=== PATIENT | male | born 1960 | race Caucasian/White ===

== ENCOUNTER 2018-03-02 19:01 | Inpatient (IN) ==
[2018-03-02] MEDS ORDERED: *HR* FentaNYL (PF) 100 MCG/2 ML VIAL IVP ONE ×2 (20:17→21:03)
[2018-03-02] MEDS ORDERED: Ondansetron 4 MG/2 ML VIAL IVP ONE (20:17)
[2018-03-02] MEDS ORDERED: 0.9 % Sodium Chloride 1,000 ML IVC ONE (20:17)
--- NOTE | 2018-03-02 20:19 | Emergency Department Note ---
Disposition Clinical Impression: Acute appendicitis Qualifiers: Acute appendicitis type: with localized peritonitis Appendicitis gangrene presence: without gangrene Appendicitis perforation presence: without perforation Appendicitis abscess presence: without abscess Qualified Code(s): K35.30 - Acute appendicitis with localized peritonitis, without perforation or gangrene Disposition: Admitted As Inpatient Condition: Undetermined Referrals: Dimitri Archuleta MD [Primary Care Provider] - Forms: ED Satisfaction Letter, Work/School Release Time of Disposition: 21:28 Abdominal Pain HPI - General Chief Complaint: ED Abdominal Pain Stated Complaint: ABD Pain hx umbilical hernia Time Seen by Provider: 03/02/18 19:57 Source: patient Mode of arrival: ambulatory Limitations: no limitations Nursing Notes Reviewed: Yes Vital Signs Reviewed: Yes - History of Present Illness HPI Narrative: 57-year-old male arrives to the emergency department with onset of gradually worsening abdominal pain in the right lower quadrant. Patient states this started overnight last night is progressively worsened. He states started about 24 hours ago. There is no colicky nature to it. He has associated nausea. The patient has had 5 episodes of vomiting. No diarrhea, melena, hematochezia. Patient denies any previous abdominal surgeries. The patient does have a history of umbilical hernia. The patient states that he was supposed to have his repair but never did. His ability to hernia is easily reduced on evaluation. He has no tenderness with palpation of his umbilical hernia. The patient's pain is primarily located in the right lower quadrant. He denies any other complaints at this time. The patient is very uncomfortable on examination right around the bed. The patient was given 100 g fentanyl dose as well as IV Zofran. Patient denies any other complaints at this time. Pain Scale: 9 - Related Data Previous Rx's Medication Instructions Recorded Hydrocodone/Acetaminophen [[place] 1 each PO 3-4XD PRN #8 tablet 03/10/16 5-325 Tablet] Naproxen [Naprosyn] 500 mg PO BID PRN #15 tablet 03/10/16 Allergies Allergy/AdvReac Type Severity Reaction Status Date / Time No Known Allergies Allergy Verified 03/10/16 16:53 All systems ED: reviewed and negative except as stated. Constitutional: Denies: fever, chills, weakness ENT ED: Denies: dysphagia Cardiovascular: Denies: chest pain Respiratory: Denies: dyspnea Gastrointestinal: Reports: abdominal pain, nausea, vomiting. Denies: diarrhea, constipation, hematemesis, melena, hematochezia Genitourinary: Denies: urgency, dysuria Musculoskeletal: Denies: back pain, neck pain, arthralgia, myalgia Integumentary: Denies: rash Neurological: Denies: headache Abdominal Pain PMH - Past Medical History Medical history: Reports: no medical history Male Surgical History: Reports: no surgical history Psychiatric history: Reports: no psych history - Social History Smoking status: Never smoker Alcohol use: Reports: none Drug use: Reports: unknown Physical Exam - General Limitations: no limitations General appearance: alert, in distress (Secondary to pain) - Head Head exam: atraumatic, normocephalic, normal inspection - Eye Eye exam: Present: normal appearance, PERRL, EOMI - ENT ENT exam: normal exam, normal oropharynx, mucous membranes moist - Neck Neck exam: Present: normal inspection, full ROM, trachea midline - Chest Chest inspection: Present: normal inspection, symmetric chest wall rise - Respiratory Respiratory exam: Present: normal lung sounds bilaterally - Cardiovascular Cardiovascular exam: Present: normal rhythm, tachycardia, normal heart sounds - Abdominal Exam Abdominal exam: Present: tenderness (Diffuse, worse in RLQ), guarding, tenderness at McBurney's Point, hernia (umbilical that is reducible). Absent: distention, rebound, rigidity, Guzmán's sign, Rovsing's sign, pulsatile mass, scar - Extremities Exam Extremities exam: Present: normal inspection, full ROM. Absent: tenderness, pedal edema - Neurological Exam Neurological exam: Present: alert, oriented X3 - Skin Skin exam: Present: warm, dry, intact, normal color Course Vital Signs Temperature 99.0 F 03/02/18 19:07 Pulse Rate 100 03/02/18 19:07 Respiratory Rate 18 03/02/18 19:07 Blood Pressure 128/76 03/02/18 19:07 O2 Sat by Pulse Oximetry 96 03/02/18 19:07 Temperature 99.0 F 03/02/18 20:50 Pulse Rate 100 03/02/18 20:50 Respiratory Rate 18 03/02/18 20:50 Blood Pressure 128/76 03/02/18 20:50 O2 Sat by Pulse Oximetry 96 03/02/18 20:50 Oxygen Delivery Oxygen Delivery Room Air Abdominal Pain - MDM Narrative Medical decision making narrative: 2123: Patient's workup in the emergency department demonstrates findings consistent with retrocecal appendicitis with a large amount of periappendiceal fat stranding. The patient was given a dose of Zosyn here in the emergency department. The patient case will be discussed with general surgery. Pain is well-controlled at this time. 2127: Spoke with general surgery who requested admission to their service. He was see the patient at bedside. Patient's pain is well-controlled at this time. Patient was given Zosyn here in the emergency department. No further questions or concerns noted. - Lab Data Lab results reviewed: Yes I reviewed the patient's lab results. Result diagrams: 03/02/18 20:24 03/02/18 20:24 Lab Results 03/02/18 03/02/18 03/02/18 Range/Units 20:20 20:24 20:24 Hgb 13.9 (12.9-16.9) g/dL Hct 41.4 (37.5-50.1) % Plt Count 330 (140-400) K/mcL Sodium 134 L (136-145) mEq/L Potassium 4.3 (3.5-5.1) mEq/L Chloride 99 (98-107) mEq/L Carbon Dioxide 25 (23-29) mEq/L BUN 23 H (6-20) mg/dL Creatinine 0.74 (0.70-1.30) mg/dL Est GFR ( Amer) > 60 (> 60) Est GFR (Non-Af Amer) > 60 (> 60) BUN/Creatinine Ratio 31 H (6-26) Glucose 160 H (70-105) mg/dL Calculated Osmolality 285 (280-300) Calcium 10.0 (8.6-10.3) mg/dL Urine Color Dark Yellow (Yellow) Urine Clarity Cloudy A (Clear) Urine pH 6.0 (5.0-8.0) pH Units Ur Specific [place] 1.024 (1.010-1.025) Urine Protein Trace (Neg-Trace) mg/dL Urine Glucose (UA) Normal (Normal) mg/dL Urine Ketones Trace H (Negative) mg/dL Urine Blood Negative (Negative) Urine Nitrite Negative (Negative) Urine Bilirubin Negative (Negative) Urine Urobilinogen Normal (Normal) mg/dL Ur Leukocyte Esterase Negative (Negative) Urine Microscopic WBC 0-3 (0-3) per hpf Ur Squamous Epith Cells Few (None-Few) per lpf Urine Bacteria Moderate H (None-Few) per hpf Urine Mucus Many H (Few) Ur Culture Indicated? NO (NO) - Radiology Data Radiology results reviewed: Yes I reviewed the patient's radiology results. Abdomen/Pelvis CT 03/02/18 20:16 IMPRESSION: Acute retrocecal appendicitis with appendicoliths. The appendix is dilated measuring up to 2 cm. There several obstructing appendicolith spur. There is extensive periappendiceal fat stranding with small amount of free fluid that is likely reactive extending inferiorly in the pericolic gutter. There is no drainable fluid collection/abscess. There are few bilateral nonobstructing renal calculi measuring up to 5 mm on the left. The wall of the urinary bladder appears thick and mildly irregular with the reservation that the bladder was not opacified or well distended. Correlation with urinalysis and cystoscopy would be helpful. Bilateral L4 and L5 spondylolysis. Grade 1 spondylolisthesis at L5-S1. D/ / Rinku Rabago MD / Rinku Rabago MD Interpreting Provider: Rinku Rabago MD
[2018-03-02 20:29] LABS: Bilirubin,Urine Negative (Negative); Blood,Urine Negative (Negative); Clarity,Urine Cloudy (Clear); Color,Urine Dark Yellow (Yellow); Glucose,Urine (UA) Normal (Normal); Ketones,Urine Trace mg/dL (Negative); Leukocyte Esterase,Urine Negative (Negative); Nitrite,Urine Negative (Negative); Protein,Urine Trace mg/dL (Neg-Trace); Specific Gravity,Urine 1.024 (1.010-1.025); Urobilinogen,Urine Normal (Normal)
--- NOTE | 2018-03-02 20:33 | Emergency Department Note ---
Disposition Clinical Impression: Acute appendicitis Disposition: Admitted As Inpatient Condition: Undetermined Abdominal Pain HPI - General Chief Complaint: ED Abdominal Pain Stated Complaint: ABD Pain hx umbilical hernia Time Seen by Provider: 03/02/18 19:57 Source: patient Mode of arrival: ambulatory Limitations: no limitations Nursing Notes Reviewed: Yes Vital Signs Reviewed: Yes - History of Present Illness HPI Narrative: 57 y/o M with PMHx of umbilical hernia presents with complaints of gradual onset RLQ abdominal pain today along with 5 episodes of non-bloody vomiting. Patient states that he has a previous diagnosis of umbilical hernia that he was advised by his PCP to go see General Surgery Dr. Toribio to have repaired. Patient never had the surgery scheduled and notes some mild 2-3/10 pain over the umbilical hernia since that time. Patient had a minor procedure done yesterday to remove tissue from his lip and since that time he has noticed the increasing pain. Pain is located in the RLQ abdomen and rated 10+/10 worse with any movement. He last had a bowel movement 24hrs ago and notes it was normal. He was eating normally yesterday prior to the onset of pain but hasnt eaten today secondary to vomiting. He denies fevers, chest pain, SOB, hemoptysis, diarrhea, hematochezia, HAM, swelling, trauma. Pain Scale: 9 - Related Data Previous Rx's Medication Instructions Recorded Hydrocodone/Acetaminophen [[place] 1 each PO 3-4XD PRN #8 tablet 03/10/16 5-325 Tablet] Naproxen [Naprosyn] 500 mg PO BID PRN #15 tablet 03/10/16 Allergies Allergy/AdvReac Type Severity Reaction Status Date / Time No Known Allergies Allergy Verified 03/10/16 16:53 Constitutional: Denies: fever, chills, weakness ENT ED: Denies: dysphagia Cardiovascular: Denies: chest pain Respiratory: Denies: dyspnea Gastrointestinal: Reports: abdominal pain, nausea, vomiting. Denies: diarrhea, constipation, hematemesis, melena, hematochezia Genitourinary: Denies: urgency, dysuria Musculoskeletal: Denies: back pain, neck pain, arthralgia, myalgia Integumentary: Denies: rash Neurological: Denies: headache Abdominal Pain PMH - Past Medical History Medical history: Reports: no medical history Male Surgical History: Reports: no surgical history Psychiatric history: Reports: no psych history - Social History Smoking status: Never smoker Alcohol use: Reports: none Drug use: Reports: unknown Physical Exam - General Limitations: no limitations General appearance: alert, in distress (Secondary to pain) - Head Head exam: atraumatic, normocephalic, normal inspection - Neck Neck exam: Present: normal inspection, full ROM, trachea midline - Chest Chest inspection: Present: normal inspection, symmetric chest wall rise - Respiratory Respiratory exam: Present: normal lung sounds bilaterally - Cardiovascular Cardiovascular exam: Present: regular rate, normal rhythm, normal heart sounds - Abdominal Exam Abdominal exam: Present: tenderness (RLQ), distention, guarding, diminished bowel sounds. Absent: rebound, rigidity - Extremities Exam Extremities exam: Present: normal inspection, full ROM. Absent: tenderness, pedal edema - Neurological Exam Neurological exam: Present: alert, oriented X3 - Psychiatric Psychiatric exam: Present: normal affect, normal mood - Skin Skin exam: Present: warm, dry, intact, normal color Course Vital Signs Temperature 99.0 F 03/02/18 19:07 Pulse Rate 100 03/02/18 19:07 Respiratory Rate 18 03/02/18 19:07 Blood Pressure 128/76 03/02/18 19:07 O2 Sat by Pulse Oximetry 96 03/02/18 19:07 Temperature 99.0 F 03/02/18 20:50 Pulse Rate 101 03/02/18 21:51 Respiratory Rate 19 03/02/18 22:15 Blood Pressure 126/91 03/02/18 22:15 O2 Sat by Pulse Oximetry 96 03/02/18 21:51 Oxygen Delivery Oxygen Delivery Room Air Abdominal Pain - Lab Data Result diagrams: 03/02/18 20:24 03/02/18 20:24 Lab Results 03/02/18 03/02/18 03/02/18 Range/Units 20:20 20:24 20:24 Hgb 13.9 (12.9-16.9) g/dL Hct 41.4 (37.5-50.1) % Plt Count 330 (140-400) K/mcL Sodium 134 L (136-145) mEq/L Potassium 4.3 (3.5-5.1) mEq/L Chloride 99 (98-107) mEq/L Carbon Dioxide 25 (23-29) mEq/L BUN 23 H (6-20) mg/dL Creatinine 0.74 (0.70-1.30) mg/dL Est GFR ( Amer) > 60 (> 60) Est GFR (Non-Af Amer) > 60 (> 60) BUN/Creatinine Ratio 31 H (6-26) Glucose 160 H (70-105) mg/dL Calculated Osmolality 285 (280-300) Calcium 10.0 (8.6-10.3) mg/dL Urine Color Dark Yellow (Yellow) Urine Clarity Cloudy A (Clear) Urine pH 6.0 (5.0-8.0) pH Units Ur Specific [place] 1.024 (1.010-1.025) Urine Protein Trace (Neg-Trace) mg/dL Urine Glucose (UA) Normal (Normal) mg/dL Urine Ketones Trace H (Negative) mg/dL Urine Blood Negative (Negative) Urine Nitrite Negative (Negative) Urine Bilirubin Negative (Negative) Urine Urobilinogen Normal (Normal) mg/dL Ur Leukocyte Esterase Negative (Negative) Urine Microscopic WBC 0-3 (0-3) per hpf Ur Squamous Epith Cells Few (None-Few) per lpf Urine Bacteria Moderate H (None-Few) per hpf Urine Mucus Many H (Few) Ur Culture Indicated? NO (NO)
[2018-03-02 20:35] LABS: Hematocrit 41.4 % (37.5-50.1); Hemoglobin 13.9 g/dL (12.9-16.9)
[2018-03-02 20:44] LABS: Bacteria,Urine Moderate per hpf (None-Few); Mucus,Urine Many (Few); Squamous Epithelial Cell,Urine Few per lpf (None-Few); WBC,Urine 0-3 per hpf (0-3)
[2018-03-02 20:56] LABS: BUN/Creatinine Ratio 31 (6-26); Blood Urea Nitrogen 23 mg/dL (6-20); Carbon Dioxide 25 mEq/L (23-29); Chloride 99 mEq/L (98-107); Glucose 160 mg/dL (70-105); Osmolality,Calculated 285 (280-300); Potassium 4.3 mEq/L (3.5-5.1); Sodium 134 mEq/L (136-145); eGFR For Non-African Americans > 60 (> 60)
--- NOTE | 2018-03-02 21:00 | Emergency Department Note ---
Disposition Clinical Impression: Acute appendicitis Qualifiers: Acute appendicitis type: with localized peritonitis Appendicitis gangrene presence: unspecified whether gangrene present Appendicitis perforation presence : unspecified whether perforation present Appendicitis abscess presence: unspecified whether abscess present Qualified Code(s): K35.30 - Acute appendicitis with localized peritonitis, without perforation or gangrene Disposition: Admitted As Inpatient Condition: Undetermined General Adult HPI - General Chief complaint: ED Abdominal Pain Stated complaint: ABD Pain hx umbilical hernia Time Seen by Provider: 03/02/18 19:57 Source: patient Mode of arrival: ambulatory Limitations: no limitations - History of Present Illness Pain Scale: 9 - Related Data Home Medications Medication Instructions Recorded Confirmed Biotin 1,000 mcg PO DAILY 03/02/18 03/02/18 Ibuprofen [Motrin] 800 mg PO DAILY PRN 03/02/18 03/02/18 Allergies Allergy/AdvReac Type Severity Reaction Status Date / Time No Known Allergies Allergy Verified 03/02/18 22:48 Constitutional: Denies: fever, chills, weakness ENT ED: Denies: dysphagia Cardiovascular: Denies: chest pain Respiratory: Denies: dyspnea Gastrointestinal: Reports: abdominal pain, nausea, vomiting. Denies: diarrhea, constipation, hematemesis, melena, hematochezia Genitourinary: Denies: urgency, dysuria Musculoskeletal: Denies: back pain, neck pain, arthralgia, myalgia Integumentary: Denies: rash Neurological: Denies: headache Past Medical History - Past Medical History Medical history: Reports: no medical history Psychiatric history: Reports: no psych history - Social History Smoking Status: Never smoker Smokeless Tobacco Status: No Alcohol use: Reports: none Drug use: Reports: unknown Physical Exam - General Limitations: no limitations General appearance: alert, in distress Course Vital Signs Temperature 99.0 F 03/02/18 19:07 Pulse Rate 100 03/02/18 19:07 Respiratory Rate 18 03/02/18 19:07 Blood Pressure 128/76 03/02/18 19:07 O2 Sat by Pulse Oximetry 96 03/02/18 19:07 Temperature 99.5 F 03/02/18 23:50 Pulse Rate 104 03/03/18 00:10 Respiratory Rate 20 03/03/18 00:10 Blood Pressure 146/80 03/03/18 00:10 O2 Sat by Pulse Oximetry 96 10/17/18 00:10 Oxygen Delivery Oxygen Delivery Room Air Medical Decision Making - Lab Data Result diagrams: 03/02/18 20:24 03/02/18 20:24 Lab Results 03/02/18 03/02/18 03/02/18 Range/Units 20:20 20:24 20:24 Hgb 13.9 (12.9-16.9) g/dL Hct 41.4 (37.5-50.1) % Plt Count 330 (140-400) K/mcL Sodium 134 L (136-145) mEq/L Potassium 4.3 (3.5-5.1) mEq/L Chloride 99 (98-107) mEq/L Carbon Dioxide 25 (23-29) mEq/L BUN 23 H (6-20) mg/dL Creatinine 0.74 (0.70-1.30) mg/dL Est GFR ( Amer) > 60 (> 60) Est GFR (Non-Af Amer) > 60 (> 60) BUN/Creatinine Ratio 31 H (6-26) Glucose 160 H (70-105) mg/dL Calculated Osmolality 285 (280-300) Calcium 10.0 (8.6-10.3) mg/dL Urine Color Dark Yellow (Yellow) Urine Clarity Cloudy A (Clear) Urine pH 6.0 (5.0-8.0) pH Units Ur Specific [place] 1.024 (1.010-1.025) Urine Protein Trace (Neg-Trace) mg/dL Urine Glucose (UA) Normal (Normal) mg/dL Urine Ketones Trace H (Negative) mg/dL Urine Blood Negative (Negative) Urine Nitrite Negative (Negative) Urine Bilirubin Negative (Negative) Urine Urobilinogen Normal (Normal) mg/dL Ur Leukocyte Esterase Negative (Negative) Urine Microscopic WBC 0-3 (0-3) per hpf Ur Squamous Epith Cells Few (None-Few) per lpf Urine Bacteria Moderate H (None-Few) per hpf Urine Mucus Many H (Few) Ur Culture Indicated? NO (NO) Attestation Statement - Attestation Attestation: I examined this patient and my medical decision-making was reviewed with the Resident Physician. I agree with the documented findings, disposition and treatment plan as described except to the extent set forth below. 24 hours of gradually progressive right lower quadrant pain with development of anorexia, nausea and vomiting after onset of the pain. Increased pain with bumps in the road and way here. Has exquisite right lower quadrant tenderness with positive Rovsing, obturator and heel strike on exam. Positive rebound. Classic picture for appendicitis. Suspicion for appendectomy as high. Given his age and is in the local hernia, CT scan is warranted, but if it is negative for any acute process, patient will require admission, as my clinical suspicion is high enough to warrant observation and serial exams.
[2018-03-02] MEDS ORDERED: KETAMINE IVPB ONE (21:03)
[2018-03-02] MEDS ORDERED: SODIUM CHLORIDE 0.9% IVPB ONE (21:03)
[2018-03-02] MEDS ORDERED: Piperacillin/Tazobactam 3.375 GM in 0.9 % Sodium Chloride Mini Bag 100 ML IVPB ONE (21:06)
--- NOTE | 2018-03-02 21:53 | Anesthesia Evaluation PreOp ---
Date of Encounter: 03/02/18 Time of Encounter: 21:52 - Past History Planned Operation: Laparoscopic Appendectomy Cardiac History: Denies any Significant Hx Pulmonary History: Former smoker (quit 2 years ago, smoked for 20 years), Snore [employer] History: Denies Any Significant HX Other Medical History: Denies Any Significant HX Anesthesia History: Past Anesthesia (no prior general anesthesia) Alcohol Use: occasionally Drug use: none Medications and Allergies Hydrocodone/Acetaminophen [[place] 5-325 Tablet] 1 each PO 3-4XD PRN #8 tablet [Rx] Naproxen [Naprosyn] 500 mg PO BID PRN #15 tablet 03/10/16 [Rx] 3 Allergy/AdvReac Type Severity Reaction Status Date / Time No Known Allergies Allergy Verified 03/10/16 16:53 - Meds/Allergy Pre-op Review Medications Reviewed: Yes Allergies Reviewed: Yes Beta Blockers on Current Med List: No Anesthesia Results - Labs 03/02/18 20:24 03/02/18 20:24 Anesthesia Exam Vital Signs/O2 Sat, Most Current Temp Pulse Resp BP Pulse Ox 99.0 F 101 17 133/78 96 03/02/18 20:50 03/02/18 21:51 03/02/18 21:51 03/02/18 21:51 03/02/18 21:51 Height: 6'/1.83m Weight: 205 lbs/93 kg NPO (# of Hours): 8 Pain Scale: 4 Pain Scale Used: Numeric (1 - 10) - HEENT Pupil (Motor): EOMI Mallampati: III Teeth: Normal Oral Opening: Greater than 3 - UND[employer]PERVISOR LOC: Oriented [employer] Motor: Normal RUE, Normal LUE, Normal RLE, Normal LLE, Normal Face [employer]PERVISOR Sensory: Normal: RUE, LUE, RLE, LLE, Face - Cardiac Rhythm: Regular Murmur: None - Pulmonary Breath Sounds: bilateral Clear Respiratory Effort: Symmetrical Anesthesia Assess/Plan ASA Score: 2 Modified Young Scale for Level of Consciousness: Cooperative, oriented, and tranquil Anesthetic Plan: General Monitoring Plan: Standard Monitors Recovery Plan: PACU
[2018-03-02] MEDS ORDERED: *HR* Cisatracurium 10 MG/5 ML VIAL IV ONE (22:01)
[2018-03-02] MEDS ORDERED: *HR* Propofol 200 MG/20 ML VIAL IVP ONE (22:03)
[2018-03-02] MEDS ORDERED: CefOXitin 1,000 MG VIAL ONE (22:03)
[2018-03-02] MEDS ORDERED: *HR* FentaNYL (PF) 100 MCG/2 ML VIAL ONE ×2 (22:03→23:07)
[2018-03-02] MEDS ORDERED: *HR* Midazolam HCl 2 MG/2 ML VIAL ONE (22:03)
[2018-03-02] MEDS ORDERED: *HR* Succinylcholine 200 MG/10 ML VIAL IVP ONE (22:04)
[2018-03-02] MEDS ORDERED: Lidocaine -MPF 4% 5 ML AMPUL ONE (22:04)
[2018-03-02] MEDS ORDERED: Lidocaine -MPF 2% 2 ML VIAL ONE (22:04)
--- NOTE | 2018-03-02 22:09 | General Surg History&Physical ---
Date of Encounter: 03/02/18 Time of Encounter: 09:50 Assessment and Plan (1) Acute appendicitis Current Visit: Yes Status: Acute The assessment and plan as outlined above was discussed with the patient and/or family members who expressed understanding and agreement. All questions were answered. The patient is seen and evaluated in the emergency room. I discussed the CAT scan findings as well as physical examination findings. Clinical course is consistent with severe acute appendicitis. Plan immediate laparoscopic appendectomy. He understands there is a small risk for open conversion. Qualifiers: Acute appendicitis type: with localized peritonitis Appendicitis gangrene presence: unspecified whether gangrene present Appendicitis perforation presence: unspecified whether perforation present Appendicitis abscess presence: unspecified whether abscess present Qualified Code(s): K35.30 - Acute appendicitis with localized peritonitis, without perforation or gangrene History of Present Illness Chief complaint: Right sided abdominal pain HPI: Mr. Washington is a 57 year old male Who quit smoking 2 years ago. He now has developed right-sided abdominal pain for the last 24-36 hours. The pain is localized to the right lower quadrant and unrelenting. The patient has pain with motion. He has shakes and chills he denies fever. He is had no changes in bowel habits. He is anorexic. He sought evaluation in the emergency department. CAT scan demonstrated acute appendicitis. He now presents for laparoscopic appendectomy and treatment of acute appendicitis Past Med Surg Social Fam HX - Past Medical History Medical history: no medical history Psychiatric history: no psych history - Social History Smoking Status: Never smoker Smokeless Tobacco Status: No Alcohol use: none Drug use: unknown Medications and Allergies Hydrocodone/Acetaminophen [[place] 5-325 Tablet] 1 each PO 3-4XD PRN #8 tablet [Rx] Naproxen [Naprosyn] 500 mg PO BID PRN #15 tablet 03/10/16 [Rx] 3 Allergy/AdvReac Type Severity Reaction Status Date / Time No Known Allergies Allergy Verified 03/10/16 16:53 Review of Systems All systems PM: The remainder of the systems were reviewed and are negative General Surgery Exam Initial Vital Signs Temp Pulse Resp BP Pulse Ox 99.0 F 100 18 128/76 96 03/02/18 19:07 03/02/18 19:07 03/02/18 19:07 03/02/18 19:07 03/02/18 19:07 - General physical appearance well developed, well nourished, no distress - Neck no masses, no bruits, trachea midline, no lymphadectomy, no venous distension - Respiratory normal expansion, normal respiratory effort, clear to percussion, clear to auscultation - Cardiovascular Cardiovascular exam: Present: RRR, no murmurs/rubs/gallops - Abdomen Abdomen general surgery: Present: guarding, rebound (Umbilical hernia is noted) Abdominal Tenderness: Present: RLQ - Neurologic Present: CN 2-12 grossly intact, normal coordination, normal sensation - Psychiatric Psychiatric general surgery: Present: appropriate, oriented to person, oriented to place, oriented to time, speech is normal, memory intact Results - Labs 03/02/18 20:24 03/02/18 20:24 Abnormal lab results Sodium 134 mEq/L (136-145) L 03/02/18 20:24 BUN 23 mg/dL (6-20) H 03/02/18 20:24 BUN/Creatinine Ratio 31 (6-26) H 03/02/18 20:24 Glucose 160 mg/dL (70-105) H 03/02/18 20:24 Urine Clarity Cloudy (Clear) A 03/02/18 20:20 Urine Ketones Trace mg/dL (Negative) H 03/02/18 20:20 Urine Bacteria Moderate per hpf (None-Few) H 03/02/18 20:20 Urine Mucus Many (Few) H 03/02/18 20:20 All other labs normal. - Imaging CT scan - abdomen: image reviewed (I personally reviewed the CAT scan of the abdomen. The patient has severe acute appendicitis with multiple fecaliths likely causing obstruction of the appendix. There is no abscess formation.)
[2018-03-02] MEDS ORDERED: *HR* FentaNYL (PF) 100 MCG/2 ML VIAL IVP PRN (22:29)
[2018-03-02] MEDS ORDERED: *HR* OxyCODONE Immed Rel 5 MG TABLET PO PRN (22:29)
[2018-03-02] MEDS ORDERED: Ondansetron 4 MG/2 ML VIAL ONE (22:45)
[2018-03-02] MEDS ORDERED: Dexamethasone 4 MG/ML VIAL ONE (22:45)
[2018-03-02] MEDS ORDERED: Ketorolac 30 MG/ML VIAL ONE (23:25)
--- NOTE | 2018-03-02 23:47 | Operative Note ---
Date of procedure: 03/02/18 Pre-op diagnosis: Acute appendicitis Post-op diagnosis: other (Perforated appendicitis with free pus and free stool) Procedure: Laparoscopic appendectomy. Repair of umbilical hernia. Anesthesia: RAMIREZ Surgeon: Nato Pal Was there an tv production assistant present: No Estimated blood loss (cc): 50 Specimen: #1 appendix #2 umbilical hernia sac Condition: stable Disposition: PACU Procedure in Detail: After informed consent patient was taken to the major operative suite placed supine position and given adequate general endotracheal anesthesia. The abdomen is prepped and draped in sterile fashion utilizing DuraPrep standard draping techniques. Timeout was taken and the patient was identified. Made a vertical midline incision around the umbilicus down to level of the umbilical hernia. I divided the umbilical hernia sac at the level of the fascia. The hernia sac was removed and sent for pathologic evaluation. I placed 2-0 Vicryl stitches and a Russ trocar through the hernia defect. There was free pus and free stool in the abdomen photographic document was taken the appendix was fully perforated and necrotic about 2 cm distal to the connection of the cecum. The cecum was mobilized. The appendix was retrocecal. I completely divided the lateral attachments and mobilize the appendix. I divided the base the appendix off the cecum. A good solid staple line with no involvement in the area of necrosis. Once this was divided I divided the mesial appendix with 2 loads of the vascular stapler. The appendix was completely recovered in a specimen bag and removed through the umbilical port site. I then irrigated with copious amounts of antibiotic containing solution. There was no evidence of bleeding. All staple lines were intact. Total blood loss about 50 mL. All trochars were removed. This left the umbilical hernia defect. The umbilical hernia defect was closed with 3 stitches of 0 Ethibond. I irrigated the subcutaneous tissue with copious amounts of antibiotic containing solution and then closed the umbilical incision in such way as to maintain the normal anatomic relationship of the umbilical skin. Skin was closed with interrupted 2 -0 Vicryl and running 4-0 Vicryl. The trocar incisions in the suprapubic and right upper quadrant were then closed with interrupted 2-0 Vicryl and running 4- 0 Vicryl. He tolerated the procedure well.
--- NOTE | 2018-03-03 00:29 | Anesthesia Evaluation Post Op ---
Date of Encounter: 03/03/18 Time of Encounter: 00:20 - Vital Signs Vital Signs: Vital Signs/O2 Sat, Most Current Temp Pulse Resp BP Pulse Ox 99.9 F H 101 20 141/80 93 03/03/18 00:20 03/03/18 00:20 03/03/18 00:20 03/03/18 00:20 03/03/18 00:20 - Lungs Lungs: Clear Ascult./Percussion - Airway Airway: Non-obstructed - Cardiovascular Regular Rate - Mental Status Mental Status: Alert & Oriented, Answers Appropriately - Pain Pain Scale: 5 Pain Scale used: Numeric (1 - 10) - Nausea Vomiting Nausea Vomiting: Not Present - Hydration Hydration: NPO, Has not voided - Discharge PostOp Status: Transfer Patient to floor
[2018-03-03] MEDS: OXYCODONE Oral CONC 10 MG/0.5 ML ORAL.SYG SL PRN ×5 (01:30→21:42)
[2018-03-03] MEDS: MetroNIDAZOLE 500 MG/100 ML 500 MG/100 ML BAG IVPB SCH ×3 (01:39→16:50)
[2018-03-03 01:46] LABS: Basophils % 0.1 %; Hematocrit 36.2 % (37.5-50.1); Hemoglobin 12.4 g/dL (12.9-16.9); Immature Granulocytes % 0.5 % (0-4); Lymphocytes # 0.8 K/mcL (0.6-4.6); Lymphocytes % 4.6 %; Mean Corpuscular HGB Conc 34.3 g/dL (31.6-35.5); Mean Corpuscular Hemoglobin 30.2 pg (28.0-33.3); Mean Corpuscular Volume 88.3 fL (83.0-100.0); Mean Platelet Volume 10.1 fL (9.4-12.4); Monocytes % 5.2 %; Neutrophils # 16.4 K/mcL (1.6-8.9); Platelet Count 307 K/mcL (140-400); Red Cell Distribution Width 11.9 % (11.5-14.5); Segmented Neutrophils % 89.6 %
[2018-03-03 02:05] LABS: BUN/Creatinine Ratio 34 (6-26); Blood Urea Nitrogen 24 mg/dL (6-20); Calcium 8.7 mg/dL (8.6-10.3); Carbon Dioxide 24 mEq/L (23-29); Chloride 102 mEq/L (98-107); Glucose 150 mg/dL (70-105); Osmolality,Calculated 285 (280-300); Potassium 4.2 mEq/L (3.5-5.1); Sodium 134 mEq/L (136-145); eGFR For Non-African Americans > 60 (> 60)
[2018-03-03] MEDS: 0.9 % Sodium Chloride 1,000 ML IVC SCH ×2 (03:33→15:17)
--- NOTE | 2018-03-03 08:23 | General Surgery Progress Note ---
<Angelica Girard - Last Filed: 03/03/18 18:15> Date of Encounter: 03/03/18 Time of Encounter: 08:21 - Assessment and Plan (1) Acute appendicitis Current Visit: Yes Status: Acute POD1 lap appy with Dr Pal for a perforated appendicitis with obstruction . We will continue to observe until he has had a least 24 hours with out fever or leukocytosis may expect at least 3 days in patient : currently elevated temperature at 99.9 F overnight - serial abdominal exam - supportive care and pain management - IVF 75 - clears - continue IV zosyn and flagyl Qualifiers: Acute appendicitis type: with localized peritonitis Appendicitis gangrene presence: unspecified whether gangrene present Appendicitis perforation presence: unspecified whether perforation present Appendicitis abscess presence: unspecified whether abscess present Qualified Code(s): K35.30 - Acute appendicitis with localized peritonitis, without perforation or gangrene Subjective Patient reports: feels better, no flatus, no bowel movement, fever Narrative: He admits to no known medical problems or taking medications Objective Vital Signs - Last 8 Hours Temp Pulse Resp BP Pulse Ox 03/03/18 07:00 97.5 F L 85 18 111/66 95 03/03/18 02:20 94 03/03/18 00:47 98.4 F 90 16 120/57 95 Intake and Output 03/02/18 03/03/18 03/03/18 23:59 07:59 15:59 Output Total 50 / 50 600 / 600 Balance -50 / 950 -600 / -600 Output: Urine 600 / 600 Estimated Blood Loss 50 / 50 - General physical appearance well developed, well nourished, no distress - Eyes normal ocular movement - ENT normal pinna, normal nares, normal mucosa - Respiratory normal expansion, normal respiratory effort, clear to auscultation - Cardiovascular Cardiovascular exam: Present: RRR, no murmurs/rubs/gallops - Abdomen Abdomen: Present: bowel sounds present, soft, non tender. Absent: guarding, re bound Hernia: none, umbilical (repaired) - Incision Incision: Present: clean and dry, approximated. Absent: draining, swollen, inflamed - Integumentary no rash, no growths, no abnormal pigmentation - Neurologic CN 2-12 grossly intact, normal coordination, normal sensation - Musculoskeletal normal gait, normal posture - Psychiatric oriented to time, oriented to person, oriented to place, speech is normal, memory intact, other (very happy) - Labs 03/03/18 08:49 03/03/18 08:49 Diabetes panel 03/03/18 Range/Units 01:14 Sodium 134 L (136-145) mEq/L Potassium 4.2 (3.5-5.1) mEq/L Chloride 102 (98-107) mEq/L Carbon Dioxide 24 (23-29) mEq/L BUN 24 H (6-20) mg/dL Creatinine 0.71 (0.70-1.30) mg/dL Glucose 150 H (70-105) mg/dL Calcium 8.7 (8.6-10.3) mg/dL Calcium panel 03/03/18 Range/Units 01:14 Calcium 8.7 (8.6-10.3) mg/dL Pituitary panel 03/03/18 Range/Units 01:14 Sodium 134 L (136-145) mEq/L Potassium 4.2 (3.5-5.1) mEq/L Chloride 102 (98-107) mEq/L Carbon Dioxide 24 (23-29) mEq/L BUN 24 H (6-20) mg/dL Creatinine 0.71 (0.70-1.30) mg/dL Glucose 150 H (70-105) mg/dL Calcium 8.7 (8.6-10.3) mg/dL Adrenal panel 03/03/18 Range/Units 01:14 Sodium 134 L (136-145) mEq/L Potassium 4.2 (3.5-5.1) mEq/L Chloride 102 (98-107) mEq/L Carbon Dioxide 24 (23-29) mEq/L BUN 24 H (6-20) mg/dL Creatinine 0.71 (0.70-1.30) mg/dL Glucose 150 H (70-105) mg/dL Calcium 8.7 (8.6-10.3) mg/dL Consult Discharge Plan - Plan Referrals: Dimitri Archuleta MD [Primary Care Provider] - <Nato Pal - Last Filed: 03/04/18 16:47> - Assessment and Plan (1) Acute appendicitis Current Visit: Yes Status: Acute Qualifiers: Acute appendicitis type: with localized peritonitis Appendicitis gangrene presence: unspecified whether gangrene present Appendicitis perforation presence: unspecified whether perforation present Appendicitis abscess presence: unspecified whether abscess present Qualified Code(s): K35.30 - Acute appendicitis with localized peritonitis, without perforation or gangrene Objective Vital Signs - Last 8 Hours Temp Pulse Resp BP Pulse Ox 03/04/18 14:24 97.4 F L 83 14 123/83 98 Intake and Output 03/04/18 03/04/18 03/04/18 07:59 15:59 23:59 Intake Total 1400.38 / 1400.38 Output Total 250 / 250 Balance 1150.38 / 1150.38 Intake: IV Fluids 1400.38 / 1400.38 0.9 % Sodium Chloride 1,000 ML 1000 / 1000 @ 75 mls/hr IVC .[id number] [facility] Rx #:[id number] Flagyl Premix 500 MG/100 ML 500 100 / 100 mg In 100 ml @ 100 mls/hr IVPB Q8HR [facility] Rx#:[id number] Zosyn 3.375 GM In 0.9 % Sodium 100 / 100 Chloride (Mini-Bag +) 100 ML @ 25 mls/hr IVPB Q8HR [facility] Rx#: [id number] Output: Urine 250 / 250 Other: Meal keep - Labs 03/04/18 05:08 03/04/18 05:08 Diabetes panel 03/04/18 Range/Units 05:08 Sodium 137 (136-145) mEq/L Potassium 4.1 (3.5-5.1) mEq/L Chloride 105 (98-107) mEq/L Carbon Dioxide 27 (23-29) mEq/L BUN 17 (6-20) mg/dL Creatinine 0.72 (0.70-1.30) mg/dL Glucose 119 H (70-105) mg/dL Calcium 8.9 (8.6-10.3) mg/dL Calcium panel 03/04/18 Range/Units 05:08 Calcium 8.9 (8.6-10.3) mg/dL Pituitary panel 03/04/18 Range/Units 05:08 Sodium 137 (136-145) mEq/L Potassium 4.1 (3.5-5.1) mEq/L Chloride 105 (98-107) mEq/L Carbon Dioxide 27 (23-29) mEq/L BUN 17 (6-20) mg/dL Creatinine 0.72 (0.70-1.30) mg/dL Glucose 119 H (70-105) mg/dL Calcium 8.9 (8.6-10.3) mg/dL Adrenal panel 03/04/18 Range/Units 05:08 Sodium 137 (136-145) mEq/L Potassium 4.1 (3.5-5.1) mEq/L Chloride 105 (98-107) mEq/L Carbon Dioxide 27 (23-29) mEq/L BUN 17 (6-20) mg/dL Creatinine 0.72 (0.70-1.30) mg/dL Glucose 119 H (70-105) mg/dL Calcium 8.9 (8.6-10.3) mg/dL - Attending Attestation I examined this patient and my medical decision-making was reviewed with the Resident Physician. I agree with the documented findings, disposition and treatment plan as described except to the extent set forth below. The patient is seen and evaluated on morning rounds with the resident. His preoperative pain syndrome is gone. We will continue IV antibiotics until he is completely afebrile with normal white blood cell count. Nato Pal MD FACS
[2018-03-03] MEDS: Piperacillin/Tazobactam 3.375 GM in 0.9 % Sodium Chloride Mini Bag 100 ML IVPB SCH ×2 (08:55→16:49)
[2018-03-03 09:17] LABS: Basophils % 0.1 %; Hematocrit 37.5 % (37.5-50.1); Hemoglobin 12.5 g/dL (12.9-16.9); Immature Granulocytes % 0.7 % (0-4); Lymphocytes # 1.1 K/mcL (0.6-4.6); Lymphocytes % 5.7 %; Mean Corpuscular HGB Conc 33.3 g/dL (31.6-35.5); Mean Corpuscular Volume 89.9 fL (83.0-100.0); Mean Platelet Volume 10.2 fL (9.4-12.4); Monocytes # 1.3 K/mcL (0.0-1.3); Monocytes % 6.5 %; Neutrophils # 17.3 K/mcL (1.6-8.9); Platelet Count 305 K/mcL (140-400); Red Blood Count 4.17 M/mcL (4.19-5.50); Red Cell Distribution Width 11.9 % (11.5-14.5)
[2018-03-03 09:34] LABS: BUN/Creatinine Ratio 33 (6-26); Blood Urea Nitrogen 22 mg/dL (6-20); Calcium 8.8 mg/dL (8.6-10.3); Carbon Dioxide 23 mEq/L (23-29); Chloride 104 mEq/L (98-107); Glucose 146 mg/dL (70-105); Osmolality,Calculated 286 (280-300); Potassium 4.1 mEq/L (3.5-5.1); Sodium 135 mEq/L (136-145); eGFR For Non-African Americans > 60 (> 60)
[2018-03-03] MEDS: Ondansetron 4 MG/2 ML VIAL IVP PRN ×2 (11:41→21:43)
[2018-03-03] MEDS: *HR* OxyCODONE/APAP 5/325 TABLET PO PRN (16:48)
[2018-03-03] MEDS: *HR* Heparin 5,000 UNIT/ML VIAL SQ SCH (16:54)
[2018-03-04] MEDS: Piperacillin/Tazobactam 3.375 GM in 0.9 % Sodium Chloride Mini Bag 100 ML IVPB SCH ×3 (01:37→17:41)
[2018-03-04] MEDS: MetroNIDAZOLE 500 MG/100 ML 500 MG/100 ML BAG IVPB SCH ×3 (01:38→17:42)
[2018-03-04] MEDS: OXYCODONE Oral CONC 10 MG/0.5 ML ORAL.SYG SL PRN (01:45)
[2018-03-04 11:39] LABS: Basophils % 0.2 %; Eosinophils % 0.3 %; Hematocrit 35.3 % (37.5-50.1); Hemoglobin 11.4 g/dL (12.9-16.9); Immature Platelets 5.4 % (1.1-6.1); Lymphocytes # 2.6 K/mcL (0.6-4.6); Lymphocytes % 19.3 %; Mean Corpuscular HGB Conc 32.3 g/dL (31.6-35.5); Mean Corpuscular Hemoglobin 30.1 pg (28.0-33.3); Mean Corpuscular Volume 93.1 fL (83.0-100.0); Mean Platelet Volume 10.7 fL (9.4-12.4); Monocytes # 0.8 K/mcL (0.0-1.3); Monocytes % 6.1 %; Neutrophils # 9.7 K/mcL (1.6-8.9); Platelet Count 266 K/mcL (140-400); Red Blood Count 3.79 M/mcL (4.19-5.50); Red Cell Distribution Width 12.1 % (11.5-14.5); Segmented Neutrophils % 73.1 %
[2018-03-04 11:47] LABS: BUN/Creatinine Ratio 24 (6-26); Blood Urea Nitrogen 17 mg/dL (6-20); Calcium 8.9 mg/dL (8.6-10.3); Carbon Dioxide 27 mEq/L (23-29); Chloride 105 mEq/L (98-107); Glucose 119 mg/dL (70-105); Osmolality,Calculated 287 (280-300); Potassium 4.1 mEq/L (3.5-5.1); Sodium 137 mEq/L (136-145); eGFR For Non-African Americans > 60 (> 60)
[2018-03-04] MEDS: 0.9 % Sodium Chloride 1,000 ML IVC SCH (12:27)
[2018-03-04] MEDS: *HR* Heparin 5,000 UNIT/ML VIAL SQ SCH ×2 (12:27→17:41)
[2018-03-04] MEDS: *HR* OxyCODONE/APAP 5/325 TABLET PO PRN ×3 (12:35→22:15)
[2018-03-04] MEDS ORDERED: 0.9 % Sodium Chloride 1,000 ML IV.SOLN IV ONE (14:55)
[2018-03-04] MEDS ORDERED: Piperacillin/Tazobactam 3.375 GM VIAL IVPB ONE (14:55)
[2018-03-04] MEDS ORDERED: OXYCODONE Oral CONC 10 MG/0.5 ML ORAL.SYG PO ONE (14:55)
[2018-03-04] MEDS ORDERED: MetroNIDAZOLE 500 MG/100 ML BAG IVPB ONE (14:55)
[2018-03-04] MEDS ORDERED: 0.9 % Sodium Chloride (Mini-Bag +) 100 ML IVBAG IVC ONE (14:55)
--- NOTE | 2018-03-04 15:28 | Event Note ---
Date of Encounter: 03/04/18 Time of Encounter: 15:27 Please see hard copy for surgery progress note
[2018-03-05] MEDS: Piperacillin/Tazobactam 3.375 GM in 0.9 % Sodium Chloride Mini Bag 100 ML IVPB SCH ×2 (00:15→09:05)
[2018-03-05] MEDS: 0.9 % Sodium Chloride 1,000 ML IVC SCH ×2 (00:16→11:26)
[2018-03-05] MEDS: MetroNIDAZOLE 500 MG/100 ML 500 MG/100 ML BAG IVPB SCH ×2 (00:17→09:07)
[2018-03-05] MEDS: *HR* OxyCODONE/APAP 5/325 TABLET PO PRN ×2 (04:15→09:03)
[2018-03-05] MEDS: *HR* Heparin 5,000 UNIT/ML VIAL SQ SCH (06:31)
[2018-03-05 06:51] LABS: Basophils % 0.4 %; Eosinophils # 0.2 K/mcL (0.0-0.6); Eosinophils % 2.5 %; Hematocrit 33.4 % (37.5-50.1); Immature Granulocytes % 0.4 % (0-4); Lymphocytes % 23.7 %; Mean Corpuscular HGB Conc 32.9 g/dL (31.6-35.5); Mean Corpuscular Hemoglobin 30.1 pg (28.0-33.3); Mean Corpuscular Volume 91.3 fL (83.0-100.0); Mean Platelet Volume 10.3 fL (9.4-12.4); Monocytes # 0.8 K/mcL (0.0-1.3); Monocytes % 9.2 %; Platelet Count 265 K/mcL (140-400); Red Blood Count 3.66 M/mcL (4.19-5.50); Red Cell Distribution Width 11.9 % (11.5-14.5); Segmented Neutrophils % 63.8 %
[2018-03-05 07:02] LABS: Neutrophils # 5.4 K/mcL (1.6-8.9)
[2018-03-05] MEDS: Ondansetron 4 MG/2 ML VIAL IVP PRN (09:06)
--- NOTE | 2018-03-05 09:09 | Discharge Summary ---
<Angelica Girard - Last Filed: 03/05/18 16:16> Date of Encounter: 03/05/18 Time of Encounter: 09:00 - Discharge Diagnosis (1) Acute appendicitis Priority: Primary Status: Acute Qualifiers: Acute appendicitis type: with localized peritonitis Appendicitis gangrene presence: unspecified whether gangrene present Appendicitis perforation presence: unspecified whether perforation present Appendicitis abscess presence: unspecified whether abscess present Qualified Code(s): K35.30 - Acute appendicitis with localized peritonitis, without perforation or gangrene General Surgery Exam Initial Vital Signs Temp Pulse Resp BP Pulse Ox 99.0 F 100 18 128/76 96 03/02/18 19:07 03/02/18 19:07 03/02/18 19:07 03/02/18 19:07 03/02/18 19:07 - General physical appearance well developed, well nourished, no distress - Eyes normal ocular movement - ENT normal pinna, normal nares, normal mucosa, no hearing loss - Respiratory normal expansion, normal respiratory effort, clear to auscultation - Cardiovascular Cardiovascular exam: Present: RRR, no murmurs/rubs/gallops - Abdomen Abdomen general surgery: Present: bowel sounds present, soft, tender Abdominal Tenderness: Present: RUQ (mild at incisions) - Incision Incision: Present: erythema (mild and decreased), approximated. Absent: draining, inflamed, purulent - Integumentary Integumentary general surgery: Present: warm and dry, no abnormal pigmentation. Absent: diaphoresis - Neurologic Present: CN 2-12 grossly intact, normal coordination, normal sensation - Musculoskeletal Present: normal gait, normal posture - Psychiatric Psychiatric general surgery: Present: A&Ox3, speech is normal, memory intact - Hospital Course Hospital course: Mr. Washington is a 57 year old male presented with acute abdominal pain and underwent a lap appy with umbilical hernia repair with Dr Pal on 03-02-18. This appendix was found to be perforated with spillage thus he was observed for two days until wbc wnl and had greater than 48 hours afebrile. He was able to tolerate regular diet. He had minor erythema near umbilicus that decreased in size on night before discharge. His would was clear with minor erythemia but no discharge. he was discharged with scripts for antibiotics , pain medication and follow up in the office - Time Spent with Patient Total time spent providing and/or coordinating discharge services: - Discharge Medications Prescriptions: OxyCODONE/APAP 5/325 [Percocet 5/325 MG] 1 each PO Q6HR PRN 7 Days #28 tablet PRN Reason: Pain Ondansetron HCl [Zofran] 4 mg PO Q8HR PRN #15 tab PRN Reason: Nausea And Vomiting RX: Ciprofloxacin HCl [Cipro] 500 mg PO BID #14 tablet Docusate [Colace] 100 mg PO BID #40 capsule RX: Ibuprofen 800 mg PO Q8-10H #38 tablet RX: MetroNIDAZOLE [Flagyl ER] 750 mg PO TID 7 Days #21 tablet.er Home Medications: RX: Biotin 1,000 mcg PO DAILY 03/02/18 [History] RX: Ibuprofen [Motrin] 800 mg PO DAILY PRN 03/02/18 [History] Docusate [Colace] 100 mg PO BID #40 capsule 03/05/18 [Rx] Ondansetron HCl [Zofran] 4 mg PO Q8HR PRN #15 tab 03/05/18 [Rx] OxyCODONE/APAP 5/325 [Percocet 5/325 MG] 1 each PO Q6HR PRN 7 Days #28 tablet 03/05/18 [Rx] RX: Ciprofloxacin HCl [Cipro] 500 mg PO BID #14 tablet 03/05/18 [Rx] RX: Ibuprofen 800 mg PO Q8-10H #38 tablet 03/05/18 [Rx] RX: MetroNIDAZOLE [Flagyl ER] 750 mg PO TID 7 Days #21 tablet.er 03/05/18 [Rx] Allergies/Adverse Reactions: Allergy/AdvReac Type Severity Reaction Status Date / Time No Known Allergies Allergy Verified 03/02/18 22:48 Date of admission: 03/03/18 12:17 Primary care physician: Dimitri Archuleta MD Discharging clinician: Angelica Garcia date of discharge: 03/05/18 Labs on day of discharge: Labs from last 24 hours 03/05/18 03/04/18 03/04/18 06:23 05:08 05:08 WBC 8.4 13.2 H RBC 3.66 L 3.79 L Hgb 11.0 L 11.4 L Hct 33.4 L 35.3 L MCV 91.3 93.1 MCH 30.1 30.1 MCHC 32.9 32.3 RDW 11.9 12.1 Plt Count 265 266 MPV 10.3 10.7 Immature Gran % 0.4 1.0 Seg Neutrophils % 63.8 73.1 Lymphocytes % 23.7 19.3 Monocytes % 9.2 6.1 Eosinophils % 2.5 0.3 Basophils % 0.4 0.2 Neutrophils # 5.4 9.7 H Lymphocytes # 2.0 2.6 Monocytes # 0.8 0.8 Eosinophils # 0.2 0.0 Basophils # 0.0 0.0 Immature Plt Fraction 5.4 Sodium 137 Potassium 4.1 Chloride 105 Carbon Dioxide 27 BUN 17 Creatinine 0.72 Est GFR ( Amer) > 60 Est GFR (Non-Af Amer) > 60 BUN/Creatinine Ratio 24 Glucose 119 H Calculated Osmolality 287 Calcium 8.9 - Impressions ITS Impressions Abdomen/Pelvis CT 03/02/18 20:16 IMPRESSION: Acute retrocecal appendicitis with appendicoliths. The appendix is dilated measuring up to 2 cm. There several obstructing appendicolith spur. There is extensive periappendiceal fat stranding with small amount of free fluid that is likely reactive extending inferiorly in the pericolic gutter. There is no drainable fluid collection/abscess. There are few bilateral nonobstructing renal calculi measuring up to 5 mm on the left. The wall of the urinary bladder appears thick and mildly irregular with the reservation that the bladder was not opacified or well distended. Correlation with urinalysis and cystoscopy would be helpful. Bilateral L4 and L5 spondylolysis. Grade 1 spondylolisthesis at L5-S1. D/ / Rinku Rabago MD / Rinku Rabago MD Interpreting Provider: Rinku Rabago MD - Patient Status Disposition: Home, Self-Care Condition: Good Functional capacity at discharge: independent ambulation Overall status at discharge: patient is back to baseline - Discharge Instructions Instructions: Appendicitis (DC), Laparoscopic Appendectomy (DC) Follow Up With: Dimitri Archuleta MD [Primary Care Provider] - Nato Pal MD [Partnered Physician] - 03/19/18 10:20 am Additional Instructions: Wound Care: Remove dressing . Shower/Wash with antibacterial soap. May leave incisions open to air or cover with a dry dressing for comfort [. Please take your antibiotics and follow up in office in two weeks General Surgical Discharge Instructions 1. No pushing, pulling, or lifting greater than 15 lbs for 2-4 weeks (depending upon procedure). 2. You may shower beginning today, but no tub baths, soaking, or swimming for 2 weeks. 3. You may resume driving when you are off narcotics and are safe to react in a car. 4. Take ibuprofen every 8 hours for discomfort. If this does not relieve discomfort, you may take the as needed Percocet. Take narcotics as directed. Do not take more narcotics then directed and do not share your narcotics with any other person. Do not drink alcohol while on narcotics. 5. Take stool softeners (Colace) or a water based laxative (Miralax) while taking narcotics. You may hold for loose stools. 6. Report any fevers greater than 100.5F, increase abdominal discomfort, drainage that looks like pus, increased redness or pain at the surgical site, or any vomiting. 7. Report any pain in the calves, shortness of breath, or rapid heartbeat. 8. Follow-up in the office as directed. 9. If you were prescribed antibiotics, do not stop them without talking to your provider. - Diet and Activity Activity: increase activity as tolerated Diet: advance to your usual diet <Nato Pal - Last Filed: 03/05/18 17:12> - Discharge Diagnosis (1) Acute appendicitis Status: Acute Qualifiers: Acute appendicitis type: with localized peritonitis Appendicitis gangrene presence: unspecified whether gangrene present Appendicitis perforation presence: unspecified whether perforation present Appendicitis abscess presence: unspecified whether abscess present Qualified Code(s): K35.30 - Acute appendicitis with localized peritonitis, without perforation or gangrene General Surgery Exam Initial Vital Signs Temp Pulse Resp BP Pulse Ox 99.0 F 100 18 128/76 96 03/02/18 19:07 03/02/18 19:07 03/02/18 19:07 03/02/18 19:07 03/02/18 19:07 - Hospital Course Hospital course: Mr. Washington is a 57 year old male - Time Spent with Patient Total time spent providing and/or coordinating discharge services: Date of admission: 03/03/18 12:17 Primary care physician: Dimitri Archuleta MD Labs on day of discharge: Labs from last 24 hours 03/05/18 06:23 WBC 8.4 RBC 3.66 L Hgb 11.0 L Hct 33.4 L MCV 91.3 MCH 30.1 MCHC 32.9 RDW 11.9 Plt Count 265 MPV 10.3 Immature Gran % 0.4 Seg Neutrophils % 63.8 Lymphocytes % 23.7 Monocytes % 9.2 Eosinophils % 2.5 Basophils % 0.4 Neutrophils # 5.4 Lymphocytes # 2.0 Monocytes # 0.8 Eosinophils # 0.2 Basophils # 0.0 - Impressions ITS Impressions Abdomen/Pelvis CT 03/02/18 20:16 IMPRESSION: Acute retrocecal appendicitis with appendicoliths. The appendix is dilated measuring up to 2 cm. There several obstructing appendicolith spur. There is extensive periappendiceal fat stranding with small amount of free fluid that is likely reactive extending inferiorly in the pericolic gutter. There is no drainable fluid collection/abscess. There are few bilateral nonobstructing renal calculi measuring up to 5 mm on the left. The wall of the urinary bladder appears thick and mildly irregular with the reservation that the bladder was not opacified or well distended. Correlation with urinalysis and cystoscopy would be helpful. Bilateral L4 and L5 spondylolysis. Grade 1 spondylolisthesis at L5-S1. D/ / Rinku Rabago MD / Rinku Rabago MD Interpreting Provider: Rinku Rabago MD - Attending Attestation I examined this patient and my medical decision-making was reviewed with the Resident Physician. I agree with the documented findings, disposition and treatment plan as described except to the extent set forth below. The patient is seen and evaluated on morning rounds with the resident and clinical nurse practitioner. He is afebrile and his white blood cell count is normal. He will be discharged home on oral antibiotics. I will see him in one week. Nato Pal MD FACS
[2018-03-05 11:17] VITALS: BP 148/77
== END 2018-03-05 14:56 | disposition home or self-care (01) | DRG 343 ==
LOC: 3ANU 19:01 → EMEROOARM 19:01 → 3ANU 22:18
PROVIDERS: ADMIT Surgery; ATTEND Surgery